=== PATIENT | female | born 1980 | race Caucasian/White ===

== ENCOUNTER 2017-06-24 05:30 | Day surgery (SDC) | payer BC ==
[~2017-06-24] VITALS: Ht 152.4 cm; Wt 77.1 kg
[2017-06-24] MEDS ORDERED: KETOROLAC TROMETHAMINE 30 MG VIAL IVP ONE (07:16)
[2017-06-24] MEDS ORDERED: ROCURONIUM BROMIDE 10 MG/ML (ZEMURON) IV ONE (07:16)
[2017-06-24] MEDS ORDERED: GLYCOPYRROLATE 0.2 MG/ML VIAL IJ ONE (07:16)
[2017-06-24] MEDS ORDERED: CEFAZOLIN 1 GM IVPB PREMIX 50 ML IV ONE (07:16)
[2017-06-24] MEDS ORDERED: BUPIVACAINE /EPINEPHRINE/PF 0.5% 30 ML VIAL INJ ONE (07:16)
[2017-06-24] MEDS ORDERED: LR 1,000 ML IV.SOLN IV ONE (07:16)
[2017-06-24] MEDS ORDERED: WATER FOR IRRIGATION,STERILE 1,000 ML IRRIG.SOLN IR ONE (07:16)
[2017-06-24] MEDS ORDERED: METOCLOPRAMIDE HCL 10 MG/2 ML VIAL IVP ONE (07:16)
[2017-06-24] MEDS ORDERED: MIDAZOLAM HCL 5 MG/5 ML VIAL IVP ONE (07:16)
[2017-06-24] MEDS ORDERED: SEVOFLURANE 15 MIN GAS INH ONE (07:16)
[2017-06-24] MEDS ORDERED: fentaNYL CITRATE/PF 100 MCG/2 ML AMP IVP ONE (07:16)
[2017-06-24] MEDS ORDERED: PROPOFOL 200MG/ 20ML VIAL (DIPRIVAN) IV ONE (07:16)
[2017-06-24] MEDS ORDERED: LR 1,000 ML IV ONE (09:58)
[2017-06-24] MEDS ORDERED: OXYCODONE/ACETAMINOPHEN 5-325 TABLET PO PRN (10:00)
[2017-06-24] MEDS ORDERED: ePHEDrine sulfate 50 MG/ML VIAL IVP PRN (10:00)
[2017-06-24] MEDS ORDERED: DIPHENHYDRAMINE INJ 50 MG/ML VIAL IVP PRN (10:00)
[2017-06-24] MEDS ORDERED: fentaNYL CITRATE/PF 100 MCG/2 ML AMP IVP PRN (10:00)
[2017-06-24] MEDS ORDERED: PROMETHAZINE HCL 25 MG/ML AMP IM PRN (10:00)
[2017-06-24] MEDS ORDERED: HYDROmorphone 2 MG TAB PO PRN (10:00)
[2017-06-24] MEDS ORDERED: NALOXONE HCL 0.4 MG/ML AMP (NARCAN) IVP PRN (10:00)
[2017-06-24] MEDS ORDERED: NALBUPHINE HCL 10 MG/ML AMP IVP PRN (10:00)
[2017-06-24] MEDS ORDERED: ONDANSETRON HCL 4 MG/2 ML VIAL IVP PRN ×3 (10:00)
[2017-06-24] MEDS ORDERED: fentaNYL CITRATE/PF 100 MCG/2 ML AMP ONE (10:41)
[2017-06-24 10:55] VITALS: BP_SYST 117
[2017-06-24] MEDS ORDERED: OXYCODONE/ACETAMINOPHEN 5-325 TABLET ONE (11:43)
== END 2017-06-24 14:50 | disposition home or self-care (01) ==
LOC: SMU 05:30 → SDS 05:30
PROVIDERS: ATTEND Obstetrics & Gynecology
DX: D26.9 Other benign neoplasm of uterus, unspecified (principal); D64.9 Anemia, unspecified; D55.9 Anemia due to enzyme disorder, unspecified; N80.8 Other endometriosis
CPT/HCPCS: 36415; 57000; 58571; 86886; 86900; 86901; 88307; C1727; J0690; J1885; J2250; J2704; J2765; J3010; J3490 ×2; J7120; E0190